=== PATIENT | female | born 1950 | race Caucasian/White ===

== ENCOUNTER 2017-04-04 06:45 | Inpatient (IN) ==
[2017-04-04] MEDS ORDERED: Verapamil 5 MG/2 ML VIAL ONE (07:09)
[2017-04-04] MEDS ORDERED: ceFAZolin 2,000 MG in D5% in Water 100 ML IVPB ONE (07:09)
[2017-04-04] MEDS ORDERED: Aspirin 81 MG TAB.CHEW PO ONE (07:09)
[2017-04-04] MEDS: Ringers Solution, Lactated 1,000 ML IVC SCH (07:35)
--- NOTE | 2017-04-04 07:39 | Anesthesia Evaluation PreOp ---
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: Denies Any Significant HX Other Medical History: Diabetes Type II Anesthesia History: No Prior Anesthetic Complications : No Alcohol Use: rarely Drug use: none Medications and Allergies Aspirin Enteric Coated [Aspirin EC] 81 mg PO DAILY 04/04/17 [History] Atorvastatin Calcium 80 mg PO HS 04/04/17 [History] Carvedilol [Coreg] 6.25 mg PO BIDWM 04/04/17 [History] Chlorthalidone 25 mg PO DAILY 04/04/17 [History] Insulin Glargine,Hum.rec.anlog [Lantus Solostar] 26 unit SQ HS 04/04/17 [History ] Lisinopril [Zestril] 40 mg PO BID 04/04/17 [History] Nitroglycerin [Nitrostat] 0.4 mg SL Q5M PRN 04/04/17 [History] metFORMIN [Glucophage] 500 mg PO BID 04/04/17 [History] Allergies simvastatin Adverse Reaction (Verified 04/04/17 07:33) Nausea Sulfa (Sulfonamide Antibiotics) Adverse Reaction (Verified 04/04/17 07:33) Nausea - Meds/Allergy Pre-op Review Medications Reviewed: Yes Allergies Reviewed: Yes Beta Blockers on Current Med List: Yes Anesthesia Results - Labs Laboratory Tests 04/03/17 04/03/17 04/03/17 11:52 11:52 11:52 WBC 9.9 Hgb 14.7 Hct 42.4 Plt Count 292 PT 11.4 APTT 32.8 Potassium 4.0 Creatinine 1.40 H - Imaging EKG: report reviewed Chest x-ray: report reviewed Anesthesia Exam O2 Sat Height 1.7 m Height 1.7 m Height 1.7 m Weight 89.811 kg Weight 89.811 kg Weight 89.811 kg O2 Sat by Pulse Oximetry 95 Vital Signs Temp Pulse Resp BP Pulse Ox 98.5 F 69 18 173/78 95 04/04/17 07:07 04/04/17 07:07 04/04/17 07:07 04/04/17 07:07 04/04/17 07:07 - HEENT Mallampati: I Teeth: Edentulous Denture Type: Upper: Complete, Lower: Complete - OIL LEASE BROKER OIL LEASE BROKER Motor: Normal RUE, Normal LUE, Normal RLE, Normal LLE, Normal Face OIL LEASE BROKER Sensory: Normal: RUE, LUE, RLE, LLE, Face - Cardiac Rhythm: Regular - Pulmonary Breath Sounds: bilateral Clear Anesthesia Assess/Plan ASA Score: 4 Modified Derek Scale for Level of Consciousness: Cooperative, oriented, and tranquil Anesthetic Plan: General Monitoring Plan: Standard Monitors, A-Line, PAC, VICTOR M Recovery Plan: ICU
[2017-04-04] MEDS ORDERED: *HR* Midazolam HCl 5 MG/5 ML VIAL IVP ONE ×2 (07:46→09:13)
[2017-04-04] MEDS ORDERED: *HR* FentaNYL (PF) 1,000 MCG/20 ML VIAL ONE (07:46)
--- NOTE | 2017-04-04 07:49 | History & Physical Report ---
Date of Encounter: 04/04/17 Time of Encounter: 07:47 24 Hour HP Update - Instructions Instructions: If the History and Physical is less than 30 days old and was completed prior to A.M. admission and or procedure and has NOT been updated on calendar day of procedure please complete this update prior to performing procedure. - Update Patient reports changes in Medical Condition: No Changes in examination, assessment, or condition: No Changes in Medication: No Preop tests/diagnostics Reviewed: Yes Pre-Op MRSA Screen: Negative Surgery Remains Indicated: Yes Consent for Planned Operative Procedure(s) Verified: Yes Additions to current History and Physical: carotid duplex negative, HgbA1C 9-OR cannot wait - Pre-Operative Checklist Preoperative Checklist Indicated: Yes Prophylactic Antibiotic Ordered: Yes Home Medications Include Beta Camille: Yes Beta Camille Taken Today (Day of Surgery): Yes Beta Camille Taken Yesterday (Day Prior to Surgery): Yes Is VTE Prophylaxis Indicated?: Yes
[2017-04-04] MEDS ORDERED: CeFAZolin Pre 2,000 MG/100 ML 2,000 MG/100 ML BAG IVPB ONE (08:00)
[2017-04-04] MEDS ORDERED: Nitroglycerin 25 MG/250 ML INFUS..BTL IVC ONE ×2 (08:02→10:39)
[2017-04-04] MEDS ORDERED: Lidocaine -MPF 1% 5 ML AMPUL ONE (08:03)
[2017-04-04] MEDS ORDERED: *HR* Propofol 200 MG/20 ML VIAL IVP ONE (08:59)
[2017-04-04] MEDS ORDERED: Chlorhexidine Rinse 15 ML MOUTHWASH MM SCH (09:00)
[2017-04-04] MEDS ORDERED: Albumin Human 5% 50.0 GM/1,000 ML VIAL ONE (10:39)
[2017-04-04] MEDS ORDERED: *HR* EPINEPHrine 1 MG/ML AMPUL ONE (12:13)
[2017-04-04] MEDS ORDERED: Ondansetron 4 MG/2 ML VIAL ONE (12:13)
[2017-04-04] MEDS ORDERED: Water for inj. (sterile) 30 ML IV ONE (12:13)
[2017-04-04] MEDS ORDERED: Dexamethasone 4 MG/ML VIAL ONE (12:13)
[2017-04-04] MEDS ORDERED: Tranexamic Acid 1,000 MG/10 ML VIAL ONE (12:13)
[2017-04-04] MEDS ORDERED: *HR* Rocuronium Bromide 50 MG/5 ML VIAL ONE (12:13)
[2017-04-04] MEDS ORDERED: *HR* Phenylephrine 10 MG/ML VIAL ONE (12:13)
[2017-04-04] MEDS ORDERED: *HR* Heparin 5,000 UNIT/ML VIAL ONE (12:13)
[2017-04-04] MEDS ORDERED: *HR* Etomidate 20 MG/10 ML AMPUL IVP ONE (12:13)
[2017-04-04] MEDS ORDERED: Protamine Sulfate 50 MG/5 ML VIAL IVP ONE (12:26)
[2017-04-04] MEDS ORDERED: Potassium Chloride 40 MEQ/200 ML BAG IVPB PRN (13:02)
[2017-04-04] MEDS ORDERED: Naloxone 0.4 MG/ML INJ IVP PRN (13:02)
[2017-04-04] MEDS ORDERED: *HR* Dextrose 50 % in Water (Syg) 50 ML SYRINGE IVP PRN (13:02)
[2017-04-04] MEDS ORDERED: *HR* Promethazine 25 MG/ML VIAL IVP PRN (13:02)
[2017-04-04] MEDS ORDERED: *HR* Midazolam HCl 2 MG/2 ML VIAL ONE (13:20)
[2017-04-04] MEDS ORDERED: *HR* FentaNYL (PF) 100 MCG/2 ML VIAL ONE (13:21)
--- NOTE | 2017-04-04 13:24 | Operative Note ---
Date of procedure: 04/04/17 Procedure in Detail: Preoperative diagnosis. Coronary artery disease. Postoperative diagnosis. Same. Procedures. Coronary artery bypass grafting 3 with the left internal mammary artery to the LAD in the aorta to the right coronary artery and obtuse marginal branch of the circumflex with saphenous vein. Surgeon. Dr. Pavan Welsh. Asst. Toribio Dawkins. The patient is a 66-year-old female who has a history of previous stents and myocardial infarction. Workup was done in [facility]. This revealed decreased ventricular function with an ejection fraction of 30-35%, severe triple vessel coronary artery disease and no valvular disease. She was referred for surgery. 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 She was brought to the operating room where she was prepped and draped in standard fashion. The right greater saphenous vein was harvested from the right groin to the right ankle. This was done through several small incisions using the scope. These incisions were subsequently closed with a deep layer of 2-0 Vicryl and a 3-0 Vicryl subcuticular stitch. Standard median sternotomy was performed. The left internal mammary artery was harvested in standard fashion using the Bovie electrocoagulation. This was found to be an adequate vessel with adequate pulse and flow. Following this, mammary retractor was removed in the standard sternal community reinvestment act officer was inserted. Pericardium was opened in the midline and suspended with 2-0 silk stay sutures. Double pursestring of 20 Surgilon was placed in the aorta for the aortic cannulation site. A pursestring of 20 Surgilon was placed in the right atrial appendage for the venous uptake. The patient was heparinized. The aorta was cannulated without difficulty. 2 stage venous uptake cannula was inserted through the right atrial appendage. Pursestring of 3-0 silk was placed in the aorta and the cardioplegia needle was inserted through here. This was also uses an active and passive aortic vent. The patient was placed on cardioplegia bypass and cooled. The aorta was crossclamped and a liter of antegrade cardioplegia was given. Topical cooling with iced saline slush was also done. Attention was first turned to the diagonal system. The 2 branches were too small and diffusely diseased for grafting. Attention was next turned to the right coronary artery. The posterior descending branch was too small and diseased for grafting. We did open the distal right coronary artery. This had a lumen of 1-1/2 mm and was relatively free of disease. A standard end- to-side anastomosis was constructed using the saphenous vein and a 7-0 Prolene. When this was completed, the patient received an additional dose of antegrade cardioplegia. Attention was next turned to the circumflex. The obtuse marginal branch was dissected free with the Campo blade and opened with the Campo blade and a Alan scissors. This had a lumen of 1-1/2 mm and was relatively free of disease. Standard end-to-side anastomosis was constructed using the saphenous vein and a 7-0 Prolene. When this is completed, the patient received a last dose of antegrade cardioplegia. Mammary pedicle was harvested. Tonsil clamp was placed distally and was divided with the Metzenbaum scissors. Distal end was tied with 2-0 silk suture. Proximal end was trimmed and brought into the wound. The LAD was dissected free with the Campo blade and found to have diffuse disease out to its tip. It was opened with the Campo blade and the Alan scissors. It had a lumen of 1/2 mm with mild to moderate diffuse disease. A standard end-to-side anastomosis was constructed using the mammary artery and a 7-0 Prolene. When this is completed, the cross-clamp was removed. Pedicles tacked to surface the heart using 2 interrupted 5-0 [address] sutures. We did place some FloSeal and fibrillar around the RUTH distal anastomosis. Side biting clamp was placed on the aorta and the cardioplegia needle was removed. 2 holes were made in the aorta using a Campo blade and the 4.0 mm aortic punch. 2 proximal anastomoses were constructed in standard fashion using the saphenous veins and 5-0 Prolene's. The circumflex anastomosis was superior and the right anastomosis was inferior. When this was completed, the side-biting clamp was removed. Distal anastomoses were inspected and found to be hemostatic. Proximal anastomoses were marked with a marker from [email or web address] sponge. A pair of atrial and ventricular pacing wires was left. A total of 4 chest tubes were left. A 32 right angle chest tube in the left pleural space. A 32 angle chest tube in the pericardial well. A 42 mediastinal chest tube. A 32 right angle chest tube into the right pleural space. The patient was weaned from bypass requiring no pressors for support. Protamine was given. Hemostasis was good and the hemodynamics were good. VICTOR M revealed that the ventricular function was improved over preoperatively. The pericardium was left open. Sternum was closed with #7 sternal wires in simple and [id number] fashion. Fascia was run with a #1 Vicryl. Subcutaneous tissues with 2-0 Vicryl. Skin was closed with a 3-0 Vicryl subcuticular stitch. The patient tolerated the procedure well and was returned intensive care unit in satisfactory and stable condition. Total bypass time was 92 minutes. Total cross-clamp time was 45 minutes. She been cooled to 32.
[2017-04-04] MEDS: Insulin Human Regular 100 UNIT in 0.9 % Sodium Chloride 100 ML IVC SCH ×2 (13:25→21:04)
[2017-04-04] MEDS: Nitroglycerin 25 MG/250 ML INFUS..BTL IVC SCH ×2 (13:33→23:04)
[2017-04-04 13:52] LABS: Hematocrit 32.6 % (35.3-44.9); Mean Corpuscular Volume 82.3 fL (83.0-100.0); Monocytes # 0.7 K/mcL (0.0-1.3); Platelet Count 139 K/mcL (140-400); Red Blood Count 3.96 M/mcL (3.82-4.97); Red Cell Distribution Width 13.8 % (11.5-14.5)
[2017-04-04 13:53] LABS: ABG Base Excess -1.3 mEq/L (-2.0 to 3.0); ABG HCO3 22.6 mEQ/L (21-27); ABG Oxygen Saturation 95 % (95-98); ABG PCO2 34 mmHg (35-45); ABG PO2 72 mmHg (85-104); ABG TCO2 23.6 mEq/L (20-26); Blood Gas FiO2 50 %
[2017-04-04 13:55] LABS: ABG PH 7.43 pH Units (7.32-7.45); Hemoglobin 11.1 g/dL (11.5-15.4)
[2017-04-04 13:57] LABS: INR 1.2; Prothrombin Time 13.5 Seconds (9.4-12.1)
[2017-04-04] MEDS: *HR* Morphine 2 MG/ML SYRINGE IVP PRN ×4 (13:58→22:03)
[2017-04-04 14:00] LABS: Activated Partial Thrombo Time 29.1 Seconds (26.0-36.0)
[2017-04-04 14:05] LABS: BUN/Creatinine Ratio 20 (6-26); Blood Urea Nitrogen 17 mg/dL (7-20); Carbon Dioxide 22 mEq/L (19-29); Chloride 111 mEq/L (98-109); Glucose 219 mg/dL (70-99); Magnesium 2.3 mg/dL (1.6-2.6); Osmolality,Calculated 296 (280-300); Potassium 3.6 mEq/L (3.5-4.5); Sodium 139 mEq/L (136-145); eGFR For African Americans > 60 (> 60); eGFR For Non-African Americans > 60 (> 60)
[2017-04-04 14:06] LABS: Calcium 7.1 mg/dL (8.6-10.8)
[2017-04-04] MEDS: 0.9 % Sodium Chloride 1,000 ML IVC SCH (14:08)
[2017-04-04] MEDS ORDERED: *HR* Magnesium Sulfate 2 GM/50 ML PIGGYBACK IVPB ONE (14:14)
[2017-04-04] MEDS ORDERED: *HR* Phenylephrine 10 MG/ML VIAL IVC ONE (14:14)
[2017-04-04] MEDS ORDERED: Albumin Human 25% 25 GM/100 ML IV.SOLN IV ONE (14:14)
[2017-04-04] MEDS ORDERED: Lidocaine 2% Syringe 100 MG/5 ML IV ONE (14:14)
[2017-04-04] MEDS ORDERED: Mannitol 25% vial 12.5 GM/50 ML VIAL IVP ONE (14:14)
[2017-04-04] MEDS ORDERED: *HR* Heparin 10,000 UNIT/10 ML VIAL IV ONE (14:14)
[2017-04-04 14:20] LABS: Eosinophils # 0.3 K/mcL (0.0-0.6); Lymphocytes # 2.6 K/mcL (0.6-4.6); Neutrophils # 12.6 K/mcL (1.6-8.9)
[2017-04-04 14:21] LABS: Platelet Estimate Slight Decrease (Normal)
[2017-04-04] MEDS: Norepinephrine 4 MG in D5% in Water 250 ML IVC SCH ×2 (14:26→15:20)
[2017-04-04] MEDS: Insulin Regular, Human 100 UNIT/ML IV PRN ×2 (15:05→16:21)
[2017-04-04] MEDS: ceFAZolin 2,000 MG in D5% in Water 100 ML IVPB SCH ×2 (15:54→23:03)
[2017-04-04 16:41] LABS: ABG Base Excess -5.3 mEq/L (-2.0 to 3.0); ABG Oxygen Saturation 99 % (95-98); ABG PCO2 37 mmHg (35-45); ABG PH 7.34 pH Units (7.32-7.45); ABG PO2 157 mmHg (85-104); ABG TCO2 21.1 mEq/L (20-26)
[2017-04-04 16:42] LABS: Blood Gas FiO2 50 %; Blood Gas PEEP 5 cm H2O; Blood Gas Respiration Rate 12; Blood Gas VT 650 cc; Hematocrit 27.9 % (35.3-44.9); Lymphocytes # 1.1 K/mcL (0.6-4.6); Mean Corpuscular HGB Conc 34.1 g/dL (31.6-35.5); Mean Corpuscular Hemoglobin 28.4 pg (28.0-33.3); Mean Corpuscular Volume 83.3 fL (83.0-100.0); Mean Platelet Volume 10.8 fL (9.4-12.4); Platelet Count 170 K/mcL (140-400); Red Blood Count 3.35 M/mcL (3.82-4.97); Red Cell Distribution Width 13.7 % (11.5-14.5)
[2017-04-04 16:45] LABS: Hemoglobin 9.5 g/dL (11.5-15.4)
[2017-04-04] MEDS ORDERED: Calcium Chloride 1,000 MG in 0.9 % Sodium Chloride 100 ML IVPB ONE (16:50)
[2017-04-04] MEDS: DESMOPRESSIN IVPB SCH (16:52)
[2017-04-04] MEDS: SODIUM CHLORIDE 0.9% IVPB SCH (16:52)
[2017-04-04 16:54] LABS: Calcium 7.5 mg/dL (8.6-10.8); Potassium 3.7 mEq/L (3.5-4.5)
[2017-04-04] MEDS ORDERED: 0.9 % Sodium Chloride 500 ML ONE (17:07)
[2017-04-04] MEDS ORDERED: *HR* Vecuronium 10 MG VIAL ONE ×2 (17:11→19:30)
[2017-04-04 17:19] LABS: Neutrophils # 16.5 K/mcL (1.6-8.9); Platelet Estimate Normal (Normal)
[2017-04-04 17:20] LABS: Anisocytosis 1+ (Not Present); Hypochromasia Present (Not Present)
[2017-04-04 17:21] LABS: Large Platelets Present (Not Present)
[2017-04-04] MEDS: *HR* OxyCODONE/APAP 5/325 TABLET PO PRN (19:16)
[2017-04-04] MEDS ORDERED: *HR* Vecuronium 10 MG VIAL IVP ONE (19:34)
[2017-04-04] MEDS ORDERED: niCARdipine 40 MG/200 ML MLS IVC ONE (19:51)
--- NOTE | 2017-04-04 20:02 | Anesthesia Evaluation Post Op ---
Date of Encounter: 04/04/17 Time of Encounter: 20:00 - Airway Airway: Intubated - Cardiovascular Regular Rate - Mental Status Mental Status: Sedated - Nausea Vomiting Nausea Vomiting: Unable to assess - Hydration Hydration: NPO (Patient remains intubated and sedated. She is hemodynamically stable. She was able to move all extremeties and follow commands per RN prior to sedation and muscle relaxants. [facility] and watch CT ouput. No anesthetic complications. Will continue to follow), Loja catheter
[2017-04-04] MEDS: niCARdipine 40 MG/200 ML MLS IVC SCH (20:15)
[2017-04-04] MEDS: Chlorhexidine Rinse 15 ML MOUTHWASH MM SCH (20:27)
[2017-04-04] MEDS: Dexmedetomidine HCl 400 MCG/100 ML MLS IVC SCH (20:27)
[2017-04-04 21:15] LABS: ABG Base Excess -0.9 mEq/L (-2.0 to 3.0); ABG HCO3 22.9 mEQ/L (21-27); ABG Oxygen Saturation 100 % (95-98); ABG PCO2 33 mmHg (35-45); ABG PO2 165 mmHg (85-104); ABG TCO2 23.9 mEq/L (20-26)
[2017-04-04 21:16] LABS: Blood Gas FiO2 50 %
[2017-04-04 21:18] LABS: ABG PH 7.45 pH Units (7.32-7.45)
[2017-04-05] MEDS: *HR* OxyCODONE/APAP 5/325 TABLET PO PRN ×3 (00:06→21:17)
[2017-04-05] MEDS: Dexmedetomidine HCl 400 MCG/100 ML MLS IVC SCH ×2 (01:05→19:29)
[2017-04-05 01:53] LABS: ABG Base Excess -0.9 mEq/L (-2.0 to 3.0); ABG HCO3 23.4 mEQ/L (21-27); ABG Oxygen Saturation 96 % (95-98); ABG PCO2 36 mmHg (35-45); ABG PH 7.42 pH Units (7.32-7.45); ABG PO2 79 mmHg (85-104); ABG TCO2 24.5 mEq/L (20-26); Blood Gas FiO2 40 %
[2017-04-05] MEDS: Nitroglycerin 25 MG/250 ML INFUS..BTL IVC SCH ×2 (02:28→19:28)
[2017-04-05] MEDS: 0.9 % Sodium Chloride 1,000 ML IVC SCH (02:30)
[2017-04-05] MEDS: niCARdipine 40 MG/200 ML MLS IVC SCH ×2 (03:04→19:29)
[2017-04-05 03:05] LABS: Basophils % 0.2 %; Eosinophils % 0.2 %; Immature Granulocytes % 0.3 % (0-4); Lymphocytes # 0.5 K/mcL (0.6-4.6); Lymphocytes % 3.9 %; Mean Corpuscular HGB Conc 34.3 g/dL (31.6-35.5); Mean Corpuscular Hemoglobin 28.7 pg (28.0-33.3); Mean Corpuscular Volume 83.6 fL (83.0-100.0); Monocytes # 0.5 K/mcL (0.0-1.3); Monocytes % 3.5 %; Neutrophils # 12.1 K/mcL (1.6-8.9); Platelet Count 129 K/mcL (140-400); Red Blood Count 2.75 M/mcL (3.82-4.97); Red Cell Distribution Width 14.2 % (11.5-14.5); Segmented Neutrophils % 91.9 %
[2017-04-05 03:08] LABS: Hemoglobin 7.9 g/dL (11.5-15.4)
[2017-04-05 03:11] LABS: INR 1.2; Prothrombin Time 12.5 Seconds (9.4-12.1)
[2017-04-05 03:14] LABS: Activated Partial Thrombo Time 24.8 Seconds (26.0-36.0)
[2017-04-05 03:16] LABS: BUN/Creatinine Ratio 19 (6-26); Blood Urea Nitrogen 19 mg/dL (7-20); Calcium 8.2 mg/dL (8.6-10.8); Carbon Dioxide 22 mEq/L (19-29); Chloride 110 mEq/L (98-109); Glucose 152 mg/dL (70-99); Magnesium 1.9 mg/dL (1.6-2.6); Osmolality,Calculated 291 (280-300); Potassium 3.5 mEq/L (3.5-4.5); Sodium 138 mEq/L (136-145); eGFR For African Americans > 60 (> 60); eGFR For Non-African Americans 55 (> 60)
[2017-04-05 03:25] LABS: Platelet Estimate Decreased (Normal)
[2017-04-05] MEDS: Ringers Solution, Lactated 1,000 ML IVC SCH (04:22)
[2017-04-05] MEDS: *HR* Morphine 2 MG/ML SYRINGE IVP PRN ×7 (06:20→19:35)
--- NOTE | 2017-04-05 07:50 | Cardiothoracic Progress Note ---
Date of Encounter: 04/05/17 Time of Encounter: 07:46 - Assessment and plan (1) Coronary artery disease Current Visit: Yes Status: Acute The patient has the usual, expected acute postoperative blood loss anemia. We will give her 1 unit of packed red blood cells. We will discontinue her [place] catheter, IV fluids and arterial line. We will leave the Loja until the chest tubes,. We will wean the Precedex drip to off once the patient is extubated. We will wean the nitroglycerin drip to off to keep the systolic less than 140-150. We will wean the Dobutrex drip as tolerated to off. We will give 1 dose of IV Lasix. We will start low-dose Lopressor. - Subjective Interval history: The patient is intubated. She is presently on CPAP and moves all extremities well. Vital Signs, Last 4 Hours Temp Pulse Resp BP Pulse Ox 04/05/17 06:07 98.6 F 92 12 121/44 100 04/05/17 05:36 12 143/49 100 04/05/17 05:00 98.9 F 92 13 120/43 100 04/05/17 04:05 12 112/44 100 04/05/17 04:00 98.9 F 88 12 130/45 99 Clinical Data, last 8 Hours Output, Chest Tube Drainage 5 Amount [Mediastinal #4] Output, Chest Tube Drainage 10 Amount [Mediastinal #4] Output, Chest Tube Drainage 20 Amount [Mediastinal #4] Output, Chest Tube Drainage 10 Amount [Mediastinal #3] Output, Chest Tube Drainage 20 Amount [Mediastinal #3] Output, Chest Tube Drainage 10 Amount [Mediastinal #2] Output, Chest Tube Drainage 10 Amount [Mediastinal #2] Output, Chest Tube Drainage 10 Amount [Mediastinal #1] Output, Chest Tube Drainage 5 Amount [Mediastinal #1] Output, Chest Tube Drainage 10 Amount [Mediastinal #1] Weight 04/03/17 04/04/17 04/05/17 23:59 23:59 23:59 Weight 89.811 kg Lungs are clear to percussion and auscultation. Heart is in a normal sinus rhythm. All incisions are healing well without signs of infection and her sternum is stable. Chest x-ray reveals mild fluid overload. - Labs 04/05/17 03:00 04/05/17 03:00 Lab Results, Last 24 hours 04/04/17 04/04/17 04/04/17 13:40 13:40 13:40 WBC 16.2 H D Hgb 11.1 L D Hct 32.6 L Plt Count 139 L D INR 1.2 APTT 29.1 Sodium 139 Potassium 3.6 Chloride 111 H Carbon Dioxide 22 BUN 17 Creatinine 0.84 Glucose 219 H Calcium 7.1 L D Magnesium 2.3 04/04/17 04/04/17 04/05/17 16:25 16:25 03:00 WBC 17.5 H 13.2 H Hgb 9.5 L D 7.9 L D Hct 27.9 L 23.0 L Plt Count 170 129 L INR APTT Sodium 139 Potassium 3.7 Chloride 110 H Carbon Dioxide 20 BUN 18 Creatinine 1.10 Glucose 256 H Calcium 7.5 L Magnesium 04/05/17 04/05/17 03:00 03:00 WBC Hgb Hct Plt Count INR 1.2 APTT 24.8 L Sodium 138 Potassium 3.5 Chloride 110 H Carbon Dioxide 22 BUN 19 Creatinine 1.01 Glucose 152 H Calcium 8.2 L Magnesium 1.9 - VTE Documentation of Mechanical Device: Graduated compression elastic hosiery Consult Discharge Plan - Plan Referrals: Katherin Mai, INVASIVE CARDIOVASCULAR TECHNOLOGIST [Primary Care Provider] -
[2017-04-05] MEDS ORDERED: Furosemide 20 MG/2 ML VIAL IVP ONE (07:53)
[2017-04-05] MEDS: Chlorhexidine Rinse 15 ML MOUTHWASH MM SCH ×2 (08:06→20:02)
[2017-04-05] MEDS: Ondansetron 4 MG/2 ML VIAL IVP PRN ×2 (08:59→14:39)
[2017-04-05] MEDS ORDERED: 0.9 % Sodium Chloride 250 ML ONE (09:02)
[2017-04-05 09:22] LABS: ABG Base Excess -2.1 mEq/L (-2.0 to 3.0); ABG HCO3 22.1 mEQ/L (21-27); ABG Oxygen Saturation 97 % (95-98); ABG PCO2 34 mmHg (35-45); ABG PH 7.42 pH Units (7.32-7.45); ABG PO2 88 mmHg (85-104); ABG TCO2 23.1 mEq/L (20-26)
[2017-04-05 09:24] LABS: Blood Gas FiO2 36 %
[2017-04-05] MEDS ORDERED: *HR* Dextrose 50 % in Water (Syg) 50 ML SYRINGE IVP PRN (13:22)
[2017-04-05] MEDS ORDERED: D5% in Water 1,000 ML IVC PRN (13:22)
[2017-04-05] MEDS ORDERED: Dextrose Gel 15 GM PO PRN ×2 (13:22)
[2017-04-05] MEDS: Insulin LISPRO 300 UNITS/3 ML VIAL SQ SCH ×2 (16:18→20:18)
[2017-04-05] MEDS: DESMOPRESSIN IVPB SCH (16:19)
[2017-04-05] MEDS: SODIUM CHLORIDE 0.9% IVPB SCH (16:19)
[2017-04-05] MEDS: Norepinephrine 4 MG in D5% in Water 250 ML IVC SCH (19:29)
[2017-04-05] MEDS: Insulin Human Regular 100 UNIT in 0.9 % Sodium Chloride 100 ML IVC SCH (19:29)
[2017-04-06] MEDS: *HR* Morphine 2 MG/ML SYRINGE IVP PRN ×3 (00:23→23:25)
[2017-04-06 03:36] LABS: Basophils # 0.1 K/mcL (0.0-0.2); Basophils % 0.3 %; Eosinophils % 0.1 %; Hematocrit 28.7 % (35.3-44.9); Hemoglobin 9.2 g/dL (11.5-15.4); Immature Granulocytes % 0.7 % (0-4); Lymphocytes % 11.8 %; Mean Corpuscular HGB Conc 32.1 g/dL (31.6-35.5); Mean Corpuscular Hemoglobin 27.9 pg (28.0-33.3); Mean Platelet Volume 11.3 fL (9.4-12.4); Monocytes # 1.6 K/mcL (0.0-1.3); Monocytes % 9.5 %; Neutrophils # 13.4 K/mcL (1.6-8.9); Platelet Count 166 K/mcL (140-400); Red Cell Distribution Width 15.9 % (11.5-14.5); Segmented Neutrophils % 77.6 %
[2017-04-06 03:49] LABS: Calcium 8.6 mg/dL (8.6-10.8)
[2017-04-06 03:50] LABS: Potassium 4.9 mEq/L (3.5-4.5)
[2017-04-06] MEDS: *HR* OxyCODONE/APAP 5/325 TABLET PO PRN ×3 (04:04→15:39)
--- NOTE | 2017-04-06 08:35 | Cardiothoracic Progress Note ---
Date of Encounter: 04/06/17 Time of Encounter: 08:33 - Assessment and plan (1) Coronary artery disease Current Visit: Yes Status: Acute Chest tubes were removed. We will check a stat portable chest x-ray. We will discontinue the Loja. We will probably transfer the patient to the floor tomorrow. - Subjective Interval history: The patient complains of mild postoperative pain. Vital Signs, Last 4 Hours Temp Pulse Resp BP Pulse Ox 04/06/17 08:05 81 20 114/65 92 04/06/17 07:47 98.8 F 04/06/17 07:38 16 114/59 91 04/06/17 06:00 82 20 114/59 92 04/06/17 05:00 91 18 127/61 94 04/06/17 04:49 99 F Oxgyen Flow Rate Oxygen Flow Rate (LPM) 1 Clinical Data, last 8 Hours Output, Chest Tube Drainage 0 Amount [Mediastinal #4] Output, Chest Tube Drainage 0 Amount [Mediastinal #4] Output, Chest Tube Drainage 80 Amount [Mediastinal #4] Output, Chest Tube Drainage 0 Amount [Mediastinal #3] Output, Chest Tube Drainage 0 Amount [Mediastinal #3] Output, Chest Tube Drainage 10 Amount [Mediastinal #3] Output, Chest Tube Drainage 0 Amount [Mediastinal #3] Output, Chest Tube Drainage 0 Amount [Mediastinal #2] Output, Chest Tube Drainage 0 Amount [Mediastinal #2] Output, Chest Tube Drainage 20 Amount [Mediastinal #2] Output, Chest Tube Drainage 0 Amount [Mediastinal #1] Output, Chest Tube Drainage 0 Amount [Mediastinal #1] Output, Chest Tube Drainage 40 Amount [Mediastinal #1] Weight 04/04/17 04/05/17 04/06/17 23:59 23:59 23:59 Weight 89.811 kg Lungs are clear to percussion and auscultation. Heart is in a normal sinus rhythm. All incisions are healing well without signs of infection and the sternum is stable. Chest tube drainage is minimal. - Labs 04/06/17 03:15 04/06/17 03:15 Lab Results, Last 24 hours 04/06/17 04/06/17 03:15 03:15 WBC 17.3 H Hgb 9.2 L Hct 28.7 L Plt Count 166 Sodium 138 Potassium 4.9 H D Chloride 109 Carbon Dioxide 24 BUN 28 H Creatinine 1.69 H D Glucose 181 H Calcium 8.6 - VTE Documentation of Mechanical Device: Graduated compression elastic hosiery Consult Discharge Plan - Plan Referrals: Katherin Mai, CONSTRUCTION JOB COST ESTIMATOR [Primary Care Provider] -
[2017-04-06] MEDS: Insulin LISPRO 300 UNITS/3 ML VIAL SQ SCH ×4 (09:19→20:53)
[2017-04-06] MEDS: Chlorhexidine Rinse 15 ML MOUTHWASH MM SCH ×2 (09:19→19:35)
[2017-04-06] MEDS ORDERED: Insulin DETEMIR 100 UNIT/ML X5UNITS SQ SCH (21:00)
[2017-04-07] MEDS: *HR* OxyCODONE/APAP 5/325 TABLET PO PRN ×3 (04:30→17:57)
[2017-04-07 04:37] LABS: Basophils % 0.2 %; Eosinophils # 0.1 K/mcL (0.0-0.6); Eosinophils % 0.3 %; Hematocrit 27.2 % (35.3-44.9); Hemoglobin 8.6 g/dL (11.5-15.4); Immature Granulocytes % 0.7 % (0-4); Lymphocytes # 2.4 K/mcL (0.6-4.6); Lymphocytes % 13.6 %; Mean Corpuscular HGB Conc 31.6 g/dL (31.6-35.5); Mean Corpuscular Hemoglobin 27.7 pg (28.0-33.3); Mean Corpuscular Volume 87.7 fL (83.0-100.0); Mean Platelet Volume 10.7 fL (9.4-12.4); Monocytes # 1.2 K/mcL (0.0-1.3); Monocytes % 6.8 %; Neutrophils # 13.7 K/mcL (1.6-8.9); Platelet Count 167 K/mcL (140-400); Red Cell Distribution Width 15.7 % (11.5-14.5); Segmented Neutrophils % 78.4 %
[2017-04-07 04:46] LABS: Calcium 8.8 mg/dL (8.6-10.8); Potassium 4.5 mEq/L (3.5-4.5)
--- NOTE | 2017-04-07 07:17 | Cardiothoracic Progress Note ---
Date of Encounter: 04/07/17 Time of Encounter: 07:15 - Assessment and plan (1) Coronary artery disease Current Visit: Yes Status: Acute Creatinine is improving. We will transfer the patient to the floor. Hopefully, she can be discharged to a rehabilitation facility later this week. - Subjective Interval history: The patient has no complaints. She states that she feels that she is getting stronger. Vital Signs, Last 4 Hours Temp Pulse Resp BP Pulse Ox 04/07/17 06:00 75 21 115/58 91 04/07/17 05:07 98.9 F 04/07/17 05:00 82 18 129/68 91 04/07/17 04:34 20 93 04/07/17 04:00 74 15 119/64 92 Oxgyen Flow Rate Oxygen Flow Rate (LPM) 1 Clinical Data, last 8 Hours Output, Urine Amount 25 Output, Urine Amount 200 Weight 04/05/17 04/06/17 04/07/17 23:59 23:59 23:59 Weight 98.248 kg Lungs are clear to percussion and auscultation. Heart is in a normal sinus rhythm. All incisions are healing well without signs of infection and the sternum is stable. Chest x-ray after chest tube removal reveals no pneumothorax. - Labs 04/07/17 04:25 04/07/17 04:25 Lab Results, Last 24 hours 04/07/17 04/07/17 04:25 04:25 WBC 17.5 H Hgb 8.6 L Hct 27.2 L Plt Count 167 Sodium 137 Potassium 4.5 Chloride 106 Carbon Dioxide 26 BUN 38 H D Creatinine 1.55 H Glucose 153 H Calcium 8.8 - VTE Documentation of Mechanical Device: Graduated compression elastic hosiery Consult Discharge Plan - Plan Referrals: Katherin Mai, INSTRUMENT MAN [Primary Care Provider] -
[2017-04-07] MEDS: Chlorhexidine Rinse 15 ML MOUTHWASH MM SCH ×3 (08:25→20:40)
[2017-04-07] MEDS: Insulin LISPRO 300 UNITS/3 ML VIAL SQ SCH ×4 (08:26→20:41)
[2017-04-07] MEDS ORDERED: *HR* Morphine 2 MG/ML SYRINGE IVP PRN (08:35)
[2017-04-07] MEDS ORDERED: Dextrose Gel 15 GM PO PRN ×2 (08:35)
[2017-04-07] MEDS ORDERED: Insulin Regular, Human 100 UNIT/ML IV PRN (08:35)
[2017-04-07] MEDS ORDERED: Ondansetron 4 MG/2 ML VIAL IVP PRN (08:35)
[2017-04-07] MEDS ORDERED: D5% in Water 1,000 ML IVC PRN (08:35)
[2017-04-07] MEDS ORDERED: Naloxone 0.4 MG/ML INJ IVP PRN (08:35)
[2017-04-07] MEDS ORDERED: *HR* Dextrose 50 % in Water (Syg) 50 ML SYRINGE IVP PRN (08:35)
[2017-04-07 09:00] LABS: ABG PCO2 41 mmHg (35-45); ABG PH 7.41 pH Units (7.32-7.45); ABG PO2 61 mmHg (85-104)
[2017-04-07 09:01] LABS: ABG Base Excess 1.2 mEq/L (-2.0 to 3.0); ABG Hematocrit 40 % (35-51); ABG Oxygen Saturation 91 % (95-98); ABG TCO2 27.3 mEq/L (20-26)
[2017-04-07 09:02] LABS: ABG Glucose 203 mg/dL (60-95); ABG Ionized Calcium 1.09 mmol/L (1.15-1.35)
[2017-04-07 09:06] LABS: ABG Base Excess 0.7 mEq/L (-2.0 to 3.0); ABG Glucose 248 mg/dL (60-95); ABG Hematocrit 33 % (35-51); ABG Oxygen Saturation 100 % (95-98); ABG PCO2 33 mmHg (35-45); ABG PH 7.47 pH Units (7.32-7.45); ABG PO2 447 mmHg (85-104)
[2017-04-07 09:07] LABS: ABG Ionized Calcium 1.13 mmol/L (1.15-1.35)
[2017-04-07 09:12] LABS: ABG Base Excess 0.3 mEq/L (-2.0 to 3.0); ABG Glucose 288 mg/dL (60-95); ABG HCO3 24 mEQ/L (21-27); ABG Hematocrit 20 % (35-51); ABG Oxygen Saturation 100 % (95-98); ABG PCO2 33 mmHg (35-45); ABG PH 7.47 pH Units (7.32-7.45); ABG PO2 588 mmHg (85-104)
[2017-04-07 09:13] LABS: ABG Ionized Calcium 0.83 mmol/L (1.15-1.35)
[2017-04-07 09:14] LABS: VBG HCO3 25.4 mEq/L (21-27); VBG Ionized Calcium 0.9 mmol/L (1.15-1.35); VBG PH 7.38 pH Units (7.32-7.42)
[2017-04-07 09:16] LABS: ABG Base Excess -1.2 mEq/L (-2.0 to 3.0); ABG Glucose 239 mg/dL (60-95); ABG HCO3 24.3 mEQ/L (21-27); ABG Hematocrit 30 % (35-51); ABG Ionized Calcium 0.87 mmol/L (1.15-1.35); ABG Oxygen Saturation 100 % (95-98); ABG PCO2 43 mmHg (35-45); ABG PH 7.36 pH Units (7.32-7.45); ABG PO2 522 mmHg (85-104); ABG TCO2 25.6 mEq/L (20-26)
[2017-04-07 09:17] LABS: ABG HCO3 24.5 mEQ/L (21-27); ABG PCO2 36 mmHg (35-45); ABG PH 7.44 pH Units (7.32-7.45); ABG PO2 352 mmHg (85-104)
[2017-04-07 09:18] LABS: ABG Base Excess 0.4 mEq/L (-2.0 to 3.0); ABG Glucose 180 mg/dL (60-95); ABG Hematocrit 26 % (35-51); ABG Ionized Calcium 1.11 mmol/L (1.15-1.35); ABG Oxygen Saturation 100 % (95-98); ABG TCO2 25.6 mEq/L (20-26)
--- NOTE | 2017-04-07 09:36 | Electrocardiograph Report ---
[place] [id number] Test Date: 2017-04-04 Pat Name: Eugenie Fair Department: 109 Room: [facility] Gender: F Hand Frame Surgical Elastic Knitter: : 1950 Requested By: Pavan Welsh Order Number: [id number] Reading MD: Eric Mcgee MD Measurements Intervals Gillespie Rate: 79 P: 112 MS: 233 QRS: -20 QRSD: 166 T: 115 QT: 499 QTc: 534 Interpretive Statements ELECTRONIC ATRIAL PACEMAKER LEFT BUNDLE BRANCH BLOCK BASELINE ARTIFACT Electronically Signed On 04-07-2017 9:34:27 EDT by Eric Mcgee MD
[2017-04-07] MEDS: Aspirin Enteric Coated 81 MG Tablet PO SCH (10:33)
[2017-04-07] MEDS: *HR* Heparin 5,000 UNIT/ML VIAL SQ SCH (17:57)
[2017-04-07] MEDS: Insulin DETEMIR 100 UNIT/ML X5UNITS SQ SCH (20:41)
[2017-04-08 02:11] LABS: Basophils # 0.1 K/mcL (0.0-0.2); Basophils % 0.4 %; Eosinophils # 0.3 K/mcL (0.0-0.6); Eosinophils % 2.4 %; Hematocrit 26.2 % (35.3-44.9); Hemoglobin 8.4 g/dL (11.5-15.4); Immature Granulocytes % 0.8 % (0-4); Lymphocytes # 1.9 K/mcL (0.6-4.6); Lymphocytes % 14.3 %; Mean Corpuscular HGB Conc 32.1 g/dL (31.6-35.5); Mean Corpuscular Hemoglobin 28.1 pg (28.0-33.3); Mean Corpuscular Volume 87.6 fL (83.0-100.0); Mean Platelet Volume 11.3 fL (9.4-12.4); Monocytes # 1.2 K/mcL (0.0-1.3); Monocytes % 9.4 %; Neutrophils # 9.5 K/mcL (1.6-8.9); Platelet Count 177 K/mcL (140-400); Red Blood Count 2.99 M/mcL (3.82-4.97); Red Cell Distribution Width 15.4 % (11.5-14.5); Segmented Neutrophils % 72.7 %
[2017-04-08 02:21] LABS: Calcium 8.8 mg/dL (8.6-10.8)
[2017-04-08] MEDS: *HR* OxyCODONE/APAP 5/325 TABLET PO PRN ×3 (03:49→20:14)
[2017-04-08] MEDS: *HR* Heparin 5,000 UNIT/ML VIAL SQ SCH ×2 (06:15→17:47)
--- NOTE | 2017-04-08 06:54 | Cardiothoracic Progress Note ---
Date of Encounter: 04/08/17 Time of Encounter: 06:52 - Assessment and plan (1) Coronary artery disease Current Visit: Yes Status: Acute Creatinine is back to baseline. We will consult a dietitian for an appropriate diet. Hopefully, the patient can be discharged to an extended care facility on . - Subjective Interval history: The patient has been doing some sitting and a little bit of walking. She has had some cough. She requests a soft pured diet as she is edentulous. Vital Signs, Last 4 Hours Temp Pulse Resp BP Pulse Ox 04/08/17 04:20 16 95 04/08/17 03:52 98.5 F 75 16 129/62 97 Oxgyen Flow Rate Oxygen Flow Rate (LPM) 3 Clinical Data, last 8 Hours Output, Urine Amount 150 Weight 04/06/17 04/07/17 04/08/17 23:59 23:59 23:59 Weight 98.248 kg Lungs are clear to percussion and auscultation. Heart is in a normal sinus rhythm. All incisions are healing well without signs of infection and the sternum is stable. - Labs 04/08/17 01:48 04/08/17 01:48 Lab Results, Last 24 hours 04/08/17 04/08/17 01:48 01:48 WBC 13.0 H Hgb 8.4 L Hct 26.2 L Plt Count 177 Sodium 137 Potassium 4.0 Chloride 105 Carbon Dioxide 26 BUN 35 H Creatinine 1.35 H Glucose 114 H Calcium 8.8 - VTE Documentation of Mechanical Device: Graduated compression elastic hosiery Consult Discharge Plan - Plan Referrals: Katherin Mai, INDUSTRIAL PSYCHOLOGY TEACHER [Primary Care Provider] -
[2017-04-08] MEDS: Insulin LISPRO 300 UNITS/3 ML VIAL SQ SCH ×4 (07:34→20:15)
[2017-04-08] MEDS: Chlorhexidine Rinse 15 ML MOUTHWASH MM SCH ×2 (08:07→20:15)
[2017-04-08] MEDS: Aspirin Enteric Coated 81 MG Tablet PO SCH (08:08)
[2017-04-08] MEDS: Insulin DETEMIR 100 UNIT/ML X5UNITS SQ SCH (20:15)
[2017-04-09 00:56] LABS: Basophils # 0.1 K/mcL (0.0-0.2); Basophils % 0.4 %; Eosinophils # 0.3 K/mcL (0.0-0.6); Eosinophils % 2.3 %; Hematocrit 26.4 % (35.3-44.9); Hemoglobin 8.5 g/dL (11.5-15.4); Immature Granulocytes % 0.6 % (0-4); Lymphocytes # 2.3 K/mcL (0.6-4.6); Lymphocytes % 19.3 %; Mean Corpuscular HGB Conc 32.2 g/dL (31.6-35.5); Mean Corpuscular Hemoglobin 28.3 pg (28.0-33.3); Mean Platelet Volume 11.4 fL (9.4-12.4); Monocytes # 1.5 K/mcL (0.0-1.3); Monocytes % 12.5 %; Neutrophils # 7.7 K/mcL (1.6-8.9); Platelet Count 230 K/mcL (140-400); Red Cell Distribution Width 15.2 % (11.5-14.5); Segmented Neutrophils % 64.9 %
[2017-04-09 01:10] LABS: Calcium 8.7 mg/dL (8.6-10.8)
[2017-04-09] MEDS: *HR* OxyCODONE/APAP 5/325 TABLET PO PRN ×2 (06:23→20:11)
[2017-04-09] MEDS: *HR* Heparin 5,000 UNIT/ML VIAL SQ SCH ×2 (06:23→16:54)
[2017-04-09] MEDS: Insulin LISPRO 300 UNITS/3 ML VIAL SQ SCH ×4 (08:00→20:16)
[2017-04-09] MEDS: Aspirin Enteric Coated 81 MG Tablet PO SCH (08:01)
[2017-04-09] MEDS: Chlorhexidine Rinse 15 ML MOUTHWASH MM SCH ×2 (08:02→20:11)
--- NOTE | 2017-04-09 08:30 | Cardiothoracic Progress Note ---
Date of Encounter: 04/09/17 Time of Encounter: 08:28 - Assessment and plan (1) Coronary artery disease Current Visit: Yes Status: Acute Hopefully, we can discharge the patient to the extended care facility tomorrow. - Subjective Interval history: The patient has no complaints other than mild postoperative pain. Vital Signs, Last 4 Hours Temp Pulse Resp BP Pulse Ox 04/09/17 08:19 79 04/09/17 07:18 98.4 F 77 16 133/66 92 04/09/17 05:24 83 14 96 04/09/17 05:16 14 96 Oxgyen Flow Rate Oxygen Flow Rate (LPM) 3 Weight 04/07/17 04/08/17 04/09/17 23:59 23:59 23:59 Weight 98.248 kg 99.3 kg Lungs are clear to percussion and auscultation. Heart is in a normal sinus rhythm. All incisions are healing well without signs of infection and the sternum is stable. Chest x-ray reveals atelectasis. - Labs 04/09/17 00:22 04/09/17 00:22 Lab Results, Last 24 hours 04/09/17 04/09/17 00:22 00:22 WBC 11.8 H Hgb 8.5 L Hct 26.4 L Plt Count 230 Sodium 136 Potassium 4.0 Chloride 103 Carbon Dioxide 26 BUN 33 H Creatinine 1.23 H Glucose 145 H Calcium 8.7 - VTE Documentation of Mechanical Device: Graduated compression elastic hosiery Consult Discharge Plan - Plan Referrals: Wyatt Mccabe MD [Partnered Physician] - (SENT WEB REQUEST ON 04-08-17 @ 4001 ) Katherin Mai, RAIL FILLER [Primary Care Provider] - (PATIENT IS GOING TO REHAB, NO PCP APPOINTMENT NEEDED) Pavan Welsh MD [Partnered Physician] - 05/08/17 2:00 pm ()
[2017-04-09] MEDS: Furosemide 20 MG/2 ML VIAL IVP SCH ×2 (11:15→20:11)
[2017-04-09] MEDS: Insulin DETEMIR 100 UNIT/ML X5UNITS SQ SCH (20:13)
[2017-04-10] MEDS: *HR* OxyCODONE/APAP 5/325 TABLET PO PRN ×3 (00:12→20:24)
[2017-04-10 01:28] LABS: Basophils % 0.2 %; Eosinophils # 0.4 K/mcL (0.0-0.6); Hematocrit 25.9 % (35.3-44.9); Hemoglobin 8.5 g/dL (11.5-15.4); Immature Granulocytes % 0.9 % (0-4); Lymphocytes # 2.7 K/mcL (0.6-4.6); Lymphocytes % 21.3 %; Mean Corpuscular HGB Conc 32.8 g/dL (31.6-35.5); Mean Corpuscular Hemoglobin 28.4 pg (28.0-33.3); Mean Corpuscular Volume 86.6 fL (83.0-100.0); Mean Platelet Volume 10.5 fL (9.4-12.4); Monocytes # 1.4 K/mcL (0.0-1.3); Monocytes % 10.8 %; Neutrophils # 8.1 K/mcL (1.6-8.9); Platelet Count 270 K/mcL (140-400); Red Blood Count 2.99 M/mcL (3.82-4.97); Red Cell Distribution Width 15.2 % (11.5-14.5); Segmented Neutrophils % 63.8 %
[2017-04-10 01:38] LABS: Calcium 8.8 mg/dL (8.6-10.8); Potassium 3.7 mEq/L (3.5-4.5)
[2017-04-10] MEDS: *HR* Heparin 5,000 UNIT/ML VIAL SQ SCH ×2 (06:01→17:32)
[2017-04-10] MEDS: Insulin LISPRO 300 UNITS/3 ML VIAL SQ SCH ×4 (07:25→21:07)
[2017-04-10] MEDS: Chlorhexidine Rinse 15 ML MOUTHWASH MM SCH ×2 (07:30→20:24)
[2017-04-10] MEDS: Furosemide 20 MG/2 ML VIAL IVP SCH ×2 (07:30→20:24)
[2017-04-10] MEDS: Aspirin Enteric Coated 81 MG Tablet PO SCH (07:30)
--- NOTE | 2017-04-10 08:56 | Cardiothoracic Progress Note ---
Date of Encounter: 04/10/17 Time of Encounter: 08:54 - Assessment and plan (1) Coronary artery disease Current Visit: Yes Status: Acute We will add some cough medicine. We will check a stat portable chest x-ray. We will delay her discharge to the rehabilitation facility until tomorrow. - Subjective Interval history: The patient complains of some cough and bleeding from the nose. The nasal bleeding seems to be secondary to her inspired oxygen and dry sinuses. Vital Signs, Last 4 Hours Temp Pulse Resp BP Pulse Ox 04/10/17 07:40 88 04/10/17 07:18 98.0 F 88 17 168/78 94 04/10/17 04:55 18 91 Oxgyen Flow Rate Oxygen Flow Rate (LPM) 2 Weight 04/08/17 04/09/17 04/10/17 23:59 23:59 23:59 Weight 99.3 kg Lungs are clear to percussion and auscultation. Heart is in a normal sinus rhythm. All incisions are healing well without signs of infection and the sternum is stable. - Labs 04/10/17 01:20 04/10/17 01:20 Lab Results, Last 24 hours 04/10/17 04/10/17 01:20 01:20 WBC 12.8 H Hgb 8.5 L Hct 25.9 L Plt Count 270 Sodium 138 Potassium 3.7 Chloride 103 Carbon Dioxide 28 BUN 29 H Creatinine 1.20 H Glucose 89 Calcium 8.8 - VTE Documentation of Mechanical Device: Graduated compression elastic hosiery Consult Discharge Plan - Plan Referrals: Wyatt Mccabe MD [Partnered Physician] - 05/05/17 3:00 pm (This is in [facility]) Katherin Mai CNP [Primary Care Provider] - (PATIENT IS GOING TO REHAB, NO PCP APPOINTMENT NEEDED) Pavan Welsh MD [Partnered Physician] - 05/08/17 2:00 pm ()
[2017-04-10] MEDS: Insulin DETEMIR 100 UNIT/ML X5UNITS SQ SCH (21:07)
[2017-04-11 04:38] LABS: Basophils % 0.3 %; Eosinophils # 0.4 K/mcL (0.0-0.6); Hematocrit 26.5 % (35.3-44.9); Hemoglobin 8.5 g/dL (11.5-15.4); Immature Granulocytes % 1.1 % (0-4); Lymphocytes # 2.7 K/mcL (0.6-4.6); Lymphocytes % 18.5 %; Mean Corpuscular HGB Conc 32.1 g/dL (31.6-35.5); Mean Corpuscular Hemoglobin 28.1 pg (28.0-33.3); Mean Corpuscular Volume 87.7 fL (83.0-100.0); Mean Platelet Volume 10.6 fL (9.4-12.4); Monocytes # 1.3 K/mcL (0.0-1.3); Monocytes % 8.8 %; Neutrophils # 9.9 K/mcL (1.6-8.9); Platelet Count 335 K/mcL (140-400); Red Blood Count 3.02 M/mcL (3.82-4.97); Red Cell Distribution Width 15.3 % (11.5-14.5); Segmented Neutrophils % 68.3 %
[2017-04-11 04:51] LABS: BUN/Creatinine Ratio 23 (6-26); Blood Urea Nitrogen 24 mg/dL (7-20); Calcium 8.6 mg/dL (8.6-10.8); Carbon Dioxide 29 mEq/L (19-29); Chloride 103 mEq/L (98-109); Glucose 95 mg/dL (70-99); Osmolality,Calculated 294 (280-300); Potassium 3.6 mEq/L (3.5-4.5); Sodium 140 mEq/L (136-145); eGFR For African Americans > 60 (> 60); eGFR For Non-African Americans 53 (> 60)
[2017-04-11] MEDS: *HR* Heparin 5,000 UNIT/ML VIAL SQ SCH (05:28)
[2017-04-11 05:51] LABS: Platelet Estimate Normal (Normal)
[2017-04-11 05:52] LABS: Large Platelets Present (Not Present)
[2017-04-11 07:18] VITALS: BP 141/98
[2017-04-11] MEDS: Insulin LISPRO 300 UNITS/3 ML VIAL SQ SCH (07:34)
[2017-04-11] MEDS: Aspirin Enteric Coated 81 MG Tablet PO SCH (07:39)
[2017-04-11] MEDS: Furosemide 20 MG/2 ML VIAL IVP SCH (07:39)
[2017-04-11] MEDS: *HR* OxyCODONE/APAP 5/325 TABLET PO PRN (07:40)
[2017-04-11] MEDS: Chlorhexidine Rinse 15 ML MOUTHWASH MM SCH (07:40)
--- NOTE | 2017-04-11 08:57 | Discharge Summary ---
Date of Encounter: 04/11/17 Time of Encounter: 08:53 - Discharge Diagnosis (1) Coronary artery disease Priority: Primary Status: Resolved Qualifiers: Coronary Disease-Associated Artery/Lesion type: [place] artery [place] vs. transplanted heart: [place] heart Associated angina: with stable angina Qualified Code(s): I25.118 - Atherosclerotic heart disease of [place] coronary artery with other forms of angina pectoris - Discharge Medications Prescriptions: OxyCODONE/APAP 5/325 [Percocet 5/325 MG] 1 each PO Q4HR PRN #40 tab PRN Reason: Severe Pain Home Medications: Aspirin Enteric Coated [Aspirin EC] 81 mg PO DAILY 04/04/17 [History] Atorvastatin Calcium 80 mg PO HS 04/04/17 [History] Carvedilol [Coreg] 6.25 mg PO BIDWM 04/04/17 [History] Chlorthalidone 25 mg PO DAILY 04/04/17 [History] Insulin Glargine,Hum.rec.anlog [Lantus Solostar] 26 unit SQ HS 04/04/17 [History ] Lisinopril [Zestril] 40 mg PO BID 04/04/17 [History] Nitroglycerin [Nitrostat] 0.4 mg SL Q5M PRN 04/04/17 [History] metFORMIN [Glucophage] 500 mg PO BID 04/04/17 [History] OxyCODONE/APAP 5/325 [Percocet 5/325 MG] 1 each PO Q4HR PRN #40 tab 04/11/17 [Rx ] Allergies/Adverse Reactions: Allergies simvastatin Adverse Reaction (Verified 04/04/17 07:33) Nausea Sulfa (Sulfonamide Antibiotics) Adverse Reaction (Verified 04/04/17 07:33) Nausea Date of admission: 04/04/17 08:29 Primary care physician: Katherin Mai CNP Consults: 04/04/17 07:50 Consult for Pharmacy Education [CONS] Routine Reason for Consult: open heart Call Completed: No 04/04/17 13:02 Consult to Cardiac Rehabilitation-Phase1 [CONS] Routine Comment: Reason for Consult: Post open heart Call Completed: Yes Consult to Business Support Manager [CONS] Routine Reason for SW Consult: open heart 04/07/17 08:35 Consult for Pharmacy Education [CONS] Routine Reason for Consult: Post-Op Heart Call Completed: Yes Consult to Occupational Therapy [CONS] Routine Comment: Evaluate, develop and implement POC Reason for Consult: Post-Op Heart Consult to Physical Therapy [CONS] Routine Comment: Evaluate, develop and implement POC Reason for Consult: Post open heart 04/08/17 06:57 consult to golf course manager [Consult to Nutrition] [CONS] Routine Comment: Consulting Provider: NUTRITION Reason for Dietary Consult: Diet Education Other:: pureed,diabetic diet 04/08/17 16:24 Consult to Speech Therapy [CONS] Routine Comment: Evaluate, develop and implement POC Reason for Consult: Patient on pureed diet due to difficulty swallowing. Has never been evaluated by speech therapy. Call Completed: No Procedure(s) Performed: 1. CABG 3 (RUTH to LAD, SVG to OM1, SVG to RCA) performed March 05, 2017. 2. Endoscopic vein harvesting, greater saphenous vein from right lower extremity performed March 05, 2017. Discharging clinician: Vincent Mancilla Anticipated date of discharge: 04/11/17 - Patient Status Disposition: Transfer Inpatient Rehab Fac Condition: Good Functional capacity at discharge: independent ambulation Overall status at discharge: patient is progressing back to baseline - Discharge Instructions Follow Up With: Wyatt Mccabe MD [Partnered Physician] - 05/05/17 3:00 pm (This is in [facility]) Katherin Mai CNP [Primary Care Provider] - (PATIENT IS GOING TO REHAB, NO PCP APPOINTMENT NEEDED) Pavan Welsh MD [Partnered Physician] - 05/08/17 2:00 pm () - Diet and Activity Activity: sternal precautions, no driving for four weeks, no lifting greater than 10 pounds for eight weeks, as per physical therapy Diet: diabetic diet - Hospital Course Hospital course: Ms. Fair is a 66 year old type II diabetic, hypertensive lady with known CAD. She is undergone PCI with stent placement 5 previously. She did well initially; however, redeveloped exertional substernal chest pain. She was evaluated at the [facility] and transferred to [facility] for further care. At this time she underwent cardiac catheterization was found to have severe 3 vessel CAD and an LVEF 35%. She was recommended for CABG. She requested to have her care at [facility] and was discharged home with follow-up with her business continuity consultant, Dr. Wyatt Mccabe. He referred the patient to the cardiovascular surgery office and she was seen in consultation. The CABG was scheduled for April 04, 2017. She underwent CABG3 and did well postoperatively. She was ambulating in the hallways without difficulty. She was then discharged to an extended care facility on POD#7 for further rehabilitation as a bridge to home. - Time Spent with Patient Total time spent providing and/or coordinating discharge services: Physical Examination Vital Signs, Last 4 Hours Temp Pulse Resp BP Pulse Ox 04/11/17 07:45 82 04/11/17 07:16 99.1 F 79 20 141/98 93 General: Conversant, No Apparent Distress HEENT: Atraumatic, Normocephaly, Trachea midline Neck: No JVD, Normal carotid pulses Cardiac: Reg Rate and Rhythm, Normal S1 and S2, No Murmur Lungs: Normal Breath Sounds, No Wheeze, Rales, Rhonchi Neuro: Alert and responsive, No focal deficits noted Vascular: Normal capillary refill Extremities: No Clubbing, No Cyanosis, No Edema Open Heart Registry Aspirin Cont/Prescribed at DC: Yes Beta Camille Cont/Prescribed at DC: Yes Statin Cont/Prescribed at DC: Yes NABEEL/ARB Cont/Prescribed at DC: Yes - VTE Documentation of Mechanical Device: Graduated compression elastic hosiery
--- NOTE | 2017-04-11 09:03 | Physician Discharge Referral ---
ExtendedCare Referral Info Transfer To: [facility] Provider in Charge: Pavan Welsh M.D. Provider in Charge after Transfer: PCP Institutional Level of Care: Skilled - Diagnosis (1) Coronary artery disease Priority: Primary Status: Resolved Prognosis: Good Aware of Diagnosis: Patient, Family Aware of Prognosis: Patient, Family - Transfer Medications Prescriptions: OxyCODONE/APAP 5/325 [Percocet 5/325 MG] 1 each PO Q4HR PRN #40 tab PRN Reason: Severe Pain Home Medications: Aspirin Enteric Coated [Aspirin EC] 81 mg PO DAILY 04/04/17 [History] Atorvastatin Calcium 80 mg PO HS 04/04/17 [History] Carvedilol [Coreg] 6.25 mg PO BIDWM 04/04/17 [History] Chlorthalidone 25 mg PO DAILY 04/04/17 [History] Insulin Glargine,Hum.rec.anlog [Lantus Solostar] 26 unit SQ HS 04/04/17 [History ] Lisinopril [Zestril] 40 mg PO BID 04/04/17 [History] Nitroglycerin [Nitrostat] 0.4 mg SL Q5M PRN 04/04/17 [History] metFORMIN [Glucophage] 500 mg PO BID 04/04/17 [History] OxyCODONE/APAP 5/325 [Percocet 5/325 MG] 1 each PO Q4HR PRN #40 tab 04/11/17 [Rx ] Allergies/Adverse Reactions: Allergies simvastatin Adverse Reaction (Verified 04/04/17 07:33) Nausea Sulfa (Sulfonamide Antibiotics) Adverse Reaction (Verified 04/04/17 07:33) Nausea - Respiratory Orders Smoking Cessation: Smoking cessation has been advised. For more information, call the [place] Tobacco Quit Line at 2-519-VYHONOW. - Ancillary Orders May use pressure relief devices daily prn, May go on JUDY w/family/respon democrat w /meds at nurse discretion PRN, May have alcoholic beverages, May consult with Dentist, Rail Engineer, Joint Creaser PRN - Advance Directives Code Status: Full Code - Mobility Orders Ambulate - Rehabiliation Orders Rehab Potential: Good Rehab Orders: Sternal Precautions, ROM Exercises, Evaluation for Physical Therapy, Evaluation for Occupational Therapy - Treatments Skin tear care topically daily PRN per policy, May check for fecal impaction rectally daily PRN, Fleet enema rectally every other day PRN cleansing purposes - Diet Orders Regular CERTIFICATION: I certify that the transfer of the above named patient to an Extended Care Facility is necessary for the continuing treatment of the diagnosis listed. The above information is true and accurate reflection of patient's current condition. Confidential - Redisclosure prohibited without a patient's written consent.
== END 2017-04-11 10:18 | DRG 236 ==
LOC: SAMDAY 06:45 → ICNU 08:29 → 2NNU 04-07 18:49
PROVIDERS: ADMIT Thoracic Surgery (Cardiothoracic Vascular Surgery); ATTEND Thoracic Surgery (Cardiothoracic Vascular Surgery)

== ENCOUNTER 2020-02-02 12:48 | Inpatient (IN) ==
[2020-02-02 13:35] LABS: Basophils # 0.1 K/mcL (0.0-0.2); Basophils % 0.7 %; Eosinophils # 0.2 K/mcL (0.0-0.6); Eosinophils % 2.1 %; Hematocrit 46.8 % (35.3-44.9); Hemoglobin 14.1 g/dL (11.5-15.4); Immature Granulocytes % 0.4 % (0-4); Lymphocytes # 1.4 K/mcL (0.6-4.6); Lymphocytes % 15.3 %; Mean Corpuscular HGB Conc 30.1 g/dL (31.6-35.5); Mean Corpuscular Hemoglobin 26.6 pg (28.0-33.3); Mean Corpuscular Volume 88.3 fL (83.0-100.0); Mean Platelet Volume 11.7 fL (9.4-12.4); Monocytes # 0.9 K/mcL (0.0-1.3); Monocytes % 9.1 %; Neutrophils # 6.8 K/mcL (1.6-8.9); Platelet Count 264 K/mcL (140-400); Red Cell Distribution Width 15.1 % (11.5-14.5); Segmented Neutrophils % 72.4 %; White Blood Count 9.4 K/mcL (4.3-11.1)
[2020-02-02 13:49] LABS: INR 1.1
[2020-02-02 13:52] LABS: Activated Partial Thrombo Time 34.1 Seconds (26.0-36.0)
[2020-02-02 14:00] LABS: Albumin 4.1 g/dL (3.5-5.7); Albumin/Globulin Ratio 1.5 (1.1-2.2); Bilirubin,Total 0.8 mg/dL (0.3-1.0); Calcium 9.3 mg/dL (8.6-10.3); Globulin 2.8 g/dL (2.4-3.5); Potassium 4.3 mEq/L (3.5-5.1); Total Protein 6.9 g/dL (6.4-8.9); Troponin I 0.04 ng/mL (< 0.04)
[2020-02-02] MEDS ORDERED: Naloxone 0.4 MG/ML INJ IVP PRN (17:17)
[2020-02-02] MEDS ORDERED: Ondansetron ODT 4 MG TAB.RAPDIS SL PRN (17:22)
[2020-02-02 17:47] LABS: Magnesium 2.2 mg/dL (1.6-2.6)
[2020-02-02] MEDS ORDERED: D5% in Water 1,000 ML IVC PRN (18:03)
[2020-02-02] MEDS ORDERED: Nitroglycerin 0.4 MG TAB.SUBL SL PRN (18:03)
[2020-02-02] MEDS ORDERED: Dextrose Gel 15 GM/37.5 ML TUBE PO PRN ×2 (18:03)
[2020-02-02] MEDS ORDERED: *HR* Dextrose 50 % in Water (Syg) 50 ML SYRINGE IVP PRN (18:03)
[2020-02-02] MEDS ORDERED: *HR* Metoprolol 5 MG/5 ML VIAL IVP ONE (19:47)
[2020-02-02] MEDS ORDERED: *HR* OxyCODONE Immed Rel 5 MG TABLET PO ONE (21:18)
[2020-02-02] MEDS: Furosemide 40 MG/4 ML VIAL IVP SCH (22:04)
[2020-02-02] MEDS: Insulin DETEMIR 100 UNIT/ML X5UNITS SQ SCH (22:05)
[2020-02-02] MEDS: Insulin LISPRO 300 UNITS/3 ML VIAL SQ SCH (22:06)
[2020-02-03 01:48] LABS: Hemoglobin 13.8 g/dL (11.5-15.4); Mean Corpuscular HGB Conc 30.7 g/dL (31.6-35.5); Mean Corpuscular Hemoglobin 27.2 pg (28.0-33.3); Mean Corpuscular Volume 88.6 fL (83.0-100.0); Mean Platelet Volume 11.4 fL (9.4-12.4); Platelet Count 225 K/mcL (140-400); Red Blood Count 5.08 M/mcL (3.82-4.97); White Blood Count 10.6 K/mcL (4.3-11.1)
[2020-02-03 02:08] LABS: Calcium 9.1 mg/dL (8.6-10.3); Potassium 4.6 mEq/L (3.5-5.1)
[2020-02-03] MEDS: Insulin LISPRO 300 UNITS/3 ML VIAL SQ SCH ×4 (07:54→20:48)
[2020-02-03] MEDS: Furosemide 40 MG/4 ML VIAL IVP SCH (07:55)
[2020-02-03] MEDS: Aspirin Enteric Coated 81 MG Tablet PO SCH (07:55)
[2020-02-03] MEDS: Nystatin SUSP 5 ML UD.LIQ PO SCH ×4 (07:55→20:59)
[2020-02-03] MEDS ORDERED: metOLazone 5 MG TABLET PO ONE (11:18)
[2020-02-03] MEDS: Furosemide 240 MG in 0.9 % Sodium Chloride 96 ML IVC SCH (12:55)
[2020-02-03] MEDS: Insulin DETEMIR 100 UNIT/ML X5UNITS SQ SCH (21:00)
[2020-02-03] MEDS: *HR* HYDROcodone/Acet 5/325 mg TABLET PO PRN (21:21)
[2020-02-03] MEDS ORDERED: *HR* Heparin 5,000 UNIT/ML VIAL SQ SCH (22:00)
[2020-02-04 01:41] LABS: Hemoglobin 13.6 g/dL (11.5-15.4); Mean Corpuscular HGB Conc 31.6 g/dL (31.6-35.5); Mean Corpuscular Hemoglobin 26.8 pg (28.0-33.3); Mean Corpuscular Volume 84.6 fL (83.0-100.0); Platelet Count 233 K/mcL (140-400); Red Blood Count 5.08 M/mcL (3.82-4.97); Red Cell Distribution Width 14.7 % (11.5-14.5); White Blood Count 9.4 K/mcL (4.3-11.1)
[2020-02-04 02:00] LABS: Calcium 9.2 mg/dL (8.6-10.3); Potassium 4.8 mEq/L (3.5-5.1)
[2020-02-04] MEDS ORDERED: *HR* OxyCODONE Immed Rel 5 MG TABLET PO ONE (02:16)
[2020-02-04] MEDS: Insulin LISPRO 300 UNITS/3 ML VIAL SQ SCH ×4 (08:28→20:59)
[2020-02-04] MEDS: Aspirin Enteric Coated 81 MG Tablet PO SCH (08:53)
[2020-02-04] MEDS: Metoprolol XL (24 HR) Succ 50 MG TAB.ER.24H PO SCH (08:53)
[2020-02-04] MEDS: Nystatin SUSP 5 ML UD.LIQ PO SCH ×4 (08:53→21:04)
[2020-02-04 10:08] LABS: Bilirubin,Urine Negative (Negative); Blood,Urine Large (Negative); Clarity,Urine Cloudy (Clear); Color,Urine Dark Yellow (Yellow); Glucose,Urine (UA) Normal (Normal); Ketones,Urine Negative (Negative); Leukocyte Esterase,Urine Small (Negative); Nitrite,Urine Negative (Negative); PH,Urine 5.5 pH Units (5.0-8.0); Protein,Urine 100 mg/dL (Neg-Trace); Specific Gravity,Urine 1.014 (1.010-1.025); Urobilinogen,Urine Normal (Normal)
[2020-02-04 10:09] LABS: Bacteria,Urine None Seen per hpf (None-Few); Hyaline Casts,Urine None Seen per lpf (None-Few); RBC,Urine TNTC per hpf (0-3); Squamous Epithelial Cell,Urine Many per lpf (None-Few)
[2020-02-04] MEDS: Furosemide 240 MG in 0.9 % Sodium Chloride 96 ML IVC SCH (13:52)
[2020-02-04] MEDS ORDERED: metOLazone 5 MG TABLET PO ONE (17:00)
[2020-02-04] MEDS ORDERED: Melatonin 3 MG TABLET PO PRN (20:52)
[2020-02-04] MEDS: Insulin DETEMIR 100 UNIT/ML X5UNITS SQ SCH (21:05)
[2020-02-05] MEDS: Ipratropium/Albuterol Neb 3 ML IH PRN (00:27)
[2020-02-05 02:41] LABS: Hematocrit 40.1 % (35.3-44.9); Hemoglobin 12.2 g/dL (11.5-15.4); Mean Corpuscular HGB Conc 30.4 g/dL (31.6-35.5); Mean Corpuscular Hemoglobin 26.6 pg (28.0-33.3); Mean Corpuscular Volume 87.4 fL (83.0-100.0); Mean Platelet Volume 11.5 fL (9.4-12.4); Platelet Count 221 K/mcL (140-400); Red Blood Count 4.59 M/mcL (3.82-4.97); White Blood Count 6.9 K/mcL (4.3-11.1)
[2020-02-05 02:57] LABS: Calcium 8.9 mg/dL (8.6-10.3); Potassium 4.4 mEq/L (3.5-5.1)
[2020-02-05] MEDS: *HR* HYDROcodone/Acet 5/325 mg TABLET PO PRN ×2 (03:42→20:43)
[2020-02-05] MEDS: Insulin LISPRO 300 UNITS/3 ML VIAL SQ SCH ×4 (07:43→20:37)
[2020-02-05] MEDS: Metoprolol XL (24 HR) Succ 50 MG TAB.ER.24H PO SCH (07:56)
[2020-02-05] MEDS: Aspirin Enteric Coated 81 MG Tablet PO SCH (07:56)
[2020-02-05] MEDS: Nystatin SUSP 5 ML UD.LIQ PO SCH ×4 (07:56→20:37)
[2020-02-05] MEDS: Isosorbide MONOnitrate (24 HR) 30 MG TAB.ER.24H PO SCH (07:57)
[2020-02-05] MEDS: Furosemide 240 MG in 0.9 % Sodium Chloride 96 ML IVC SCH ×2 (08:22→09:19)
[2020-02-05 09:02] LABS: Hematocrit 41.8 % (35.3-44.9); Hemoglobin 12.6 g/dL (11.5-15.4)
[2020-02-05] MEDS: Sennosides/Docusate Sodium TABLET PO PRN (11:28)
[2020-02-05 13:48] LABS: Hematocrit 38.8 % (35.3-44.9); Hemoglobin 11.9 g/dL (11.5-15.4)
[2020-02-05 16:26] LABS: Protein/Creatinine Ratio,Urine 3.57 mg/mg (0.00-0.20); Sodium, Urine 102.6 mEq/L
[2020-02-05] MEDS: Insulin DETEMIR 100 UNIT/ML X5UNITS SQ SCH (20:42)
[2020-02-06] MEDS ORDERED: *HR* LORazepam 2 MG/ML VIAL IVP ONE (00:24)
[2020-02-06 00:26] LABS: Hematocrit 39.3 % (35.3-44.9); Hemoglobin 12.6 g/dL (11.5-15.4)
[2020-02-06 04:35] LABS: Hematocrit 39.9 % (35.3-44.9); Hemoglobin 12.4 g/dL (11.5-15.4); Mean Corpuscular HGB Conc 31.1 g/dL (31.6-35.5); Mean Corpuscular Hemoglobin 27.1 pg (28.0-33.3); Mean Corpuscular Volume 87.1 fL (83.0-100.0); Mean Platelet Volume 11.8 fL (9.4-12.4); Platelet Count 224 K/mcL (140-400); Red Blood Count 4.58 M/mcL (3.82-4.97); Red Cell Distribution Width 14.8 % (11.5-14.5); White Blood Count 7.4 K/mcL (4.3-11.1)
[2020-02-06 04:48] LABS: Calcium 8.9 mg/dL (8.6-10.3); Potassium 4.2 mEq/L (3.5-5.1)
[2020-02-06] MEDS: Aspirin Enteric Coated 81 MG Tablet PO SCH (07:59)
[2020-02-06] MEDS: Insulin LISPRO 300 UNITS/3 ML VIAL SQ SCH ×4 (07:59→21:03)
[2020-02-06] MEDS: Sennosides/Docusate Sodium TABLET PO PRN ×2 (07:59→21:35)
[2020-02-06] MEDS: Isosorbide MONOnitrate (24 HR) 30 MG TAB.ER.24H PO SCH (07:59)
[2020-02-06] MEDS: Metoprolol XL (24 HR) Succ 50 MG TAB.ER.24H PO SCH (07:59)
[2020-02-06] MEDS: Nystatin SUSP 5 ML UD.LIQ PO SCH ×4 (07:59→22:20)
[2020-02-06] MEDS ORDERED: polyethylene glycoL 3350 17 GM POWD.PACK PO PRN (10:22)
[2020-02-06] MEDS: Furosemide 240 MG in 0.9 % Sodium Chloride 96 ML IVC SCH (12:01)
[2020-02-06] MEDS: Albumin 25% 25gram/100mL 25 GM/100 ML IV.SOLN IVPB SCH (17:35)
[2020-02-06] MEDS ORDERED: Acetaminophen 325 MG TABLET PO ONE (20:25)
[2020-02-06] MEDS: Ipratropium/Albuterol Neb 3 ML IH PRN (20:46)
[2020-02-06] MEDS: Insulin DETEMIR 100 UNIT/ML X5UNITS SQ SCH (21:04)
[2020-02-07 00:59] LABS: Hematocrit 39.1 % (35.3-44.9); Hemoglobin 12.3 g/dL (11.5-15.4); Mean Corpuscular HGB Conc 31.5 g/dL (31.6-35.5); Mean Corpuscular Hemoglobin 27.2 pg (28.0-33.3); Mean Corpuscular Volume 86.3 fL (83.0-100.0); Mean Platelet Volume 11.4 fL (9.4-12.4); Platelet Count 224 K/mcL (140-400); Red Blood Count 4.53 M/mcL (3.82-4.97); Red Cell Distribution Width 14.6 % (11.5-14.5); White Blood Count 8.3 K/mcL (4.3-11.1)
[2020-02-07 01:18] LABS: Complement C3 135 mg/dL (87-200)
[2020-02-07 01:19] LABS: Calcium 9.2 mg/dL (8.6-10.3); Potassium 3.9 mEq/L (3.5-5.1)
[2020-02-07] MEDS: *HR* HYDROcodone/Acet 5/325 mg TABLET PO PRN (04:05)
[2020-02-07] MEDS: Albumin 25% 25gram/100mL 25 GM/100 ML IV.SOLN IVPB SCH (05:18)
[2020-02-07 07:13] VITALS: BP 163/81
[2020-02-07] MEDS: Insulin LISPRO 300 UNITS/3 ML VIAL SQ SCH (09:33)
[2020-02-07] MEDS: Isosorbide MONOnitrate (24 HR) 30 MG TAB.ER.24H PO SCH (10:09)
[2020-02-07] MEDS: Aspirin Enteric Coated 81 MG Tablet PO SCH (10:09)
[2020-02-07] MEDS: Furosemide 240 MG in 0.9 % Sodium Chloride 96 ML IVC SCH (10:09)
[2020-02-07] MEDS: Nystatin SUSP 5 ML UD.LIQ PO SCH (10:10)
[2020-02-07] MEDS: Metoprolol XL (24 HR) Succ 50 MG TAB.ER.24H PO SCH (10:10)
== END 2020-02-07 10:45 | disposition left against medical advice (07) | DRG 280 ==
LOC: 2ANU 12:48 → EMEROOARM 12:48 → SUATTDRO 16:00 → 2ANU 16:15
PROVIDERS: ADMIT Family Medicine; ATTEND Family Medicine